=== PATIENT | male | born 1940 | race Caucasian/White ===

== ENCOUNTER 2016-05-23 18:46 | Emergency (ER) | payer BC ==
[~2016-05-23 18:46] MED LIST: ALIGN4 MG PO; AMOXIL500 MG PO; ASAB PO; BRILINTA90 MG PO; COREG3 PO; CYANOCOBALAMIN PO; EYE DROPS OPH; GLUCPH PO; HALF81 PO; JANUVIA100 MG PO; LEVOTHYROXIN50 MCG PO; LIPITOR40 PO; METHOC750B PO; MULTIPLE VIT PO; NITROSTAT0.4 MG SL; NORCO1 TA1 PO; PRILOSEC40 MG PO; PRIN5 PO; PROTONIX PO; WELLSR150 PO; ZOCOR40 PO; ZOFRAN8 PO
== END 2016-05-23 20:55 | disposition home or self-care (01) ==
LOC: ER 18:46
PROC: 0HQ1XZZ Repair Face Skin, External Approach (ICD-10-PCS; principal; 2016-05-23)
DX: S00.211A Abrasion of right eyelid and periocular area, initial encounter (principal); S50.811A Abrasion of right forearm, initial encounter; K21.9 Gastro-esophageal reflux disease without esophagitis; E11.9 Type 2 diabetes mellitus without complications; E03.9 Hypothyroidism, unspecified; Z79.82 Long term (current) use of aspirin; Z79.899 Other long term (current) drug therapy; W19.XXXA Unspecified fall, initial encounter
CPT/HCPCS: 70450; 90471; 90714; 99284